=== PATIENT | female | born 1955 | race Caucasian/White ===

== ENCOUNTER 2020-04-13 21:08 | Inpatient (IN) ==
[2020-04-13] MEDS ORDERED: ENOXAPARIN 30 MG/0.3 ML SYRINGE SUBCUT STA (22:59)
[2020-04-13 23:10] LABS: Basophils # 0.1 10*3/uL (0.0-0.2); Basophils % 0.3 % (0.0-0.8); Eosinophils # 0.2 10*3/uL (0.0-0.87); Eosinophils % 0.9 % (0.00-10.9); Hemoglobin 14.4 GM/DL (12.0-16.0); Immature Granulocytes % 0.9 %; Immature Granulocytes Absolute 0.19 #; Lymphocytes # 2.5 10*3/uL (1.4-4.0); Lymphocytes % 11.9 % (21.3-54.2); Mean Corpuscular HGB Conc 34.3 GM/DL (32-36); Mean Corpuscular Volume 86.4 FL (87-102); Mean Platelet Volume 9.1 FL (9.6-12.0); Monocytes % 5.7 % (1.7-12.7); Neutrophils % 80.3 % (38.7-73.9); Platelet Count 308 T/CUMM (130-400); Red Blood Count 4.86 MC/CUMM (3.8-5.5); Red Cell Distribution Width 12.1 % (9.3-17.3); White Blood Count 20.7 T/CUMM (4-12)
[2020-04-13] MEDS ORDERED: ENOXAPARIN 100 MG/ML SYRINGE SUBCUT ONE (23:13)
[2020-04-13 23:20] LABS: PT Patient Result 11.1 SECS (9.8-11.9)
[2020-04-13 23:27] LABS: Albumin 3.2 G/DL (3.4-5.0); Bilirubin,Total 0.8 MG/DL (0.2-1.0); Calcium 9.1 MG/DL (8.5-10.1); Osmolality,Calculated 262.8 MOS/KG (273-304); Total Protein 7.2 G/DL (6.4-8.3)
[2020-04-14] MEDS ORDERED: GLUCAGON 1 MG VIAL IM PRN (00:26)
[2020-04-14] MEDS ORDERED: DEXTROSE 50% 25 GM/50 ML VIAL IV PRN (00:26)
[2020-04-14 03:15] LABS: Apearance,Urine Slightly Hazy (Clear); Bacteria,Urine Occasional /HPF (Few); Bilirubin,Urine Negative (Negative); Blood, Urine Small mg/dL (Negative); Glucose,Urine (UA) Negative (Negative); Hyaline Casts,Urine 16 /LPF (0-3); Ketones,Urine 5 mg/dL (Negative); Mucus,Urine Moderate /LPF (Occasional); Nitrite,Urine Negative (Negative); Protein,Urine Negative; RBC,Urine 3 /HPF (0-4); Squamous Epithelial Cell,Urine Occasional /HPF (0-10); Urine Color Yellow (Yellow); Urine Specific Gravity 1.011 (1.001-1.035); Urine Urobilinogen < 2.0 EU/DL (0.2-1.0); WBC,Urine 7 /HPF (0-6)
[2020-04-14] MEDS ORDERED: ACETAMINOPHEN 325 MG TABLET PO PRN (03:45)
[2020-04-14 05:02] LABS: Hypochromasia 1+; Platelet Estimate Normal
[2020-04-14 07:17] LABS: Basophils # 0.1 10*3/uL (0.0-0.2); Basophils % 0.3 % (0.0-0.8); Eosinophils # 0.3 10*3/uL (0.0-0.87); Eosinophils % 1.4 % (0.00-10.9); Hematocrit 39.3 VOL% (35.7-47.0); Hemoglobin 13.4 GM/DL (12.0-16.0); Immature Granulocytes % 0.7 %; Immature Granulocytes Absolute 0.12 #; Lymphocytes # 3.6 10*3/uL (1.4-4.0); Lymphocytes % 19.4 % (21.3-54.2); Mean Corpuscular HGB Conc 34.1 GM/DL (32-36); Mean Corpuscular Volume 86.4 FL (87-102); Mean Platelet Volume 9.2 FL (9.6-12.0); Neutrophils % 71.2 % (38.7-73.9); Platelet Count 302 T/CUMM (130-400); Red Blood Count 4.55 MC/CUMM (3.8-5.5); Red Cell Distribution Width 12.1 % (9.3-17.3); White Blood Count 18.3 T/CUMM (4-12)
[2020-04-14 07:33] LABS: Albumin 2.8 G/DL (3.4-5.0); Bilirubin,Total 0.8 MG/DL (0.2-1.0); Calcium 9.1 MG/DL (8.5-10.1); Osmolality,Calculated 259.9 MOS/KG (273-304); Total Protein 6.8 G/DL (6.4-8.3)
[2020-04-14] MEDS: NICOTINE 21 MG/24 HR PATCH TRANSDERM SCH (08:33)
[2020-04-14] MEDS: PANTOPRAZOLE 40 MG TABLET PO SCH (10:54)
[2020-04-14] MEDS: ENOXAPARIN 80 MG/0.8 ML SYRINGE SUBCUT SCH ×2 (11:12→23:00)
[2020-04-14] MEDS ORDERED: DIAZEPAM 5 MG TABLET PO ONE (15:02)
[2020-04-14] MEDS: SODIUM CHLORIDE 0.45% 1,000 ML IV SCH (15:20)
[2020-04-14] MEDS: MENTHOL/ZINC OXIDE OINT 71 GM JAR TOP SCH ×2 (18:27→21:03)
[2020-04-14] MEDS ORDERED: LOSARTAN 50 MG TABLET PO SCH (21:00)
[2020-04-15] MEDS: HYDROmorphone 2 MG/1 ML VIAL IV PRN ×3 (01:04→10:27)
[2020-04-15 05:16] LABS: Basophils # 0.1 10*3/uL (0.0-0.2); Basophils % 0.4 % (0.0-0.8); Eosinophils # 0.2 10*3/uL (0.0-0.87); Hematocrit 38.2 VOL% (35.7-47.0); Hemoglobin 13.1 GM/DL (12.0-16.0); Immature Granulocytes % 0.8 %; Immature Granulocytes Absolute 0.13 #; Lymphocytes # 2.5 10*3/uL (1.4-4.0); Lymphocytes % 15.4 % (21.3-54.2); Mean Corpuscular HGB Conc 34.3 GM/DL (32-36); Mean Platelet Volume 9.7 FL (9.6-12.0); Monocytes % 8.2 % (1.7-12.7); Neutrophils % 74.2 % (38.7-73.9); Platelet Count 335 T/CUMM (130-400); Red Blood Count 4.44 MC/CUMM (3.8-5.5); Red Cell Distribution Width 12.1 % (9.3-17.3); White Blood Count 16.3 T/CUMM (4-12)
[2020-04-15 05:43] LABS: Calcium 8.8 MG/DL (8.5-10.1); Osmolality,Calculated 263.8 MOS/KG (273-304)
[2020-04-15] MEDS: ONDANSETRON 4 MG/2 ML VIAL IV PRN ×3 (07:58→15:04)
[2020-04-15] MEDS: PANTOPRAZOLE 40 MG TABLET PO SCH (08:41)
[2020-04-15] MEDS: NICOTINE 21 MG/24 HR PATCH TRANSDERM SCH (08:42)
[2020-04-15] MEDS ORDERED: TELMISARTAN HYDROCHLOROTHIAZID PO SCH (09:00)
[2020-04-15] MEDS: MENTHOL/ZINC OXIDE OINT 71 GM JAR TOP SCH ×2 (10:32→22:42)
[2020-04-15] MEDS: ENOXAPARIN 80 MG/0.8 ML SYRINGE SUBCUT SCH ×2 (11:56→22:43)
[2020-04-15] MEDS ORDERED: diphenhydrAMINE CAP 25 MG CAPSULE PO PRN (13:34)
[2020-04-15] MEDS: traMADol 50 MG TABLET PO PRN (15:03)
[2020-04-15] MEDS: SODIUM CHLORIDE 0.45% 1,000 ML IV SCH (18:36)
[2020-04-16] MEDS: traMADol 50 MG TABLET PO PRN ×3 (02:23→22:02)
[2020-04-16 06:00] LABS: Basophils % 0.3 % (0.0-0.8); Eosinophils # 0.2 10*3/uL (0.0-0.87); Eosinophils % 1.6 % (0.00-10.9); Hematocrit 36.2 VOL% (35.7-47.0); Hemoglobin 12.2 GM/DL (12.0-16.0); Immature Granulocytes % 0.6 %; Immature Granulocytes Absolute 0.08 #; Lymphocytes # 2.2 10*3/uL (1.4-4.0); Mean Corpuscular HGB Conc 33.7 GM/DL (32-36); Mean Platelet Volume 9.9 FL (9.6-12.0); Neutrophils % 73.5 % (38.7-73.9); Platelet Count 338 T/CUMM (130-400); Red Blood Count 4.21 MC/CUMM (3.8-5.5); White Blood Count 13.7 T/CUMM (4-12)
[2020-04-16 06:16] LABS: Calcium 9.1 MG/DL (8.5-10.1); Osmolality,Calculated 255.2 MOS/KG (273-304)
[2020-04-16 06:42] LABS: Anisocytosis Slight; Platelet Estimate Normal
[2020-04-16 06:43] LABS: Basophilic Stippling Slight
[2020-04-16] MEDS: SODIUM CHLORIDE 0.45% 1,000 ML IV SCH (06:56)
[2020-04-16] MEDS ORDERED: POTASSIUM CHLORIDE 20 MEQ TABLET PO ONE (09:11)
[2020-04-16] MEDS: NICOTINE 21 MG/24 HR PATCH TRANSDERM SCH (09:20)
[2020-04-16] MEDS: PANTOPRAZOLE 40 MG TABLET PO SCH (09:23)
[2020-04-16] MEDS: ENOXAPARIN 80 MG/0.8 ML SYRINGE SUBCUT SCH ×2 (10:10→23:29)
[2020-04-16] MEDS: cefTRIAXone 1,000 MG in SYRINGE 1 EACH IV SCH (10:10)
[2020-04-16] MEDS: MENTHOL/ZINC OXIDE OINT 71 GM JAR TOP SCH ×2 (10:15→21:27)
[2020-04-16] MEDS: SODIUM CHLORIDE 0.9% 1,000 ML IV SCH ×3 (12:20→22:05)
[2020-04-17] MEDS: traMADol 50 MG TABLET PO PRN (05:42)
[2020-04-17 06:01] LABS: Basophils % 0.3 % (0.0-0.8); Eosinophils # 0.2 10*3/uL (0.0-0.87); Eosinophils % 1.7 % (0.00-10.9); Hematocrit 33.8 VOL% (35.7-47.0); Hemoglobin 11.7 GM/DL (12.0-16.0); Immature Granulocytes % 0.6 %; Immature Granulocytes Absolute 0.07 #; Lymphocytes # 2.3 10*3/uL (1.4-4.0); Lymphocytes % 20.2 % (21.3-54.2); Mean Corpuscular HGB Conc 34.6 GM/DL (32-36); Mean Corpuscular Volume 85.6 FL (87-102); Mean Platelet Volume 9.2 FL (9.6-12.0); Monocytes % 8.2 % (1.7-12.7); Platelet Count 353 T/CUMM (130-400); Red Blood Count 3.95 MC/CUMM (3.8-5.5); Red Cell Distribution Width 11.9 % (9.3-17.3); White Blood Count 11.4 T/CUMM (4-12)
[2020-04-17 06:31] LABS: Calcium 8.3 MG/DL (8.5-10.1); Osmolality,Calculated 265.2 MOS/KG (273-304)
[2020-04-17] MEDS: SODIUM CHLORIDE 0.9% 1,000 ML IV SCH (08:25)
[2020-04-17] MEDS: PANTOPRAZOLE 40 MG TABLET PO SCH (08:26)
[2020-04-17] MEDS: MENTHOL/ZINC OXIDE OINT 71 GM JAR TOP SCH (08:26)
[2020-04-17] MEDS: NICOTINE 21 MG/24 HR PATCH TRANSDERM SCH (08:26)
[2020-04-17] MEDS: cefTRIAXone 1,000 MG in SYRINGE 1 EACH IV SCH (08:26)
[2020-04-17 11:21] VITALS: BP 118/65
[2020-04-17] MEDS: ENOXAPARIN 80 MG/0.8 ML SYRINGE SUBCUT SCH (12:33)
== END 2020-04-17 13:59 | disposition home health service (06) | DRG 253 ==
LOC: N.EDINP 21:08 → N.ED 21:08 → SUPCPDRO 04-14 00:26 → N.4E 04-14 02:48
PROVIDERS: ADMIT Internal Medicine; ATTEND Internal Medicine